=== PATIENT | male | born 1960 | race Caucasian/White ===

== ENCOUNTER 2020-10-12 13:03 | Outpatient (REF) | payer OTHER, SELFPAY ==
[2020-10-12 14:02] LABS: MANUAL DIFF FLAG NO
[2020-10-12 14:08] LABS: Basophils Percent Auto 0.6 % (0-2); Eosinophils Absolute Auto 0.4 X10*3/uL (0.0-0.4); Eosinophils Percent Auto 5.6 % (0-4); Hematocrit 40.7 % (42-52); Hemoglobin 13.8 g/dl (14.0-18.0); Imm Gran Abs Auto 0.01 X10*3/uL (0.00-0.03); Imm Gran Pct Auto 0.2 % (0.0-0.4); Lymphocytes Absolute Auto 1.8 X10*3/uL (1.2-4.9); Lymphocytes Percent Auto 28.3 % (20-40); Mean Corpuscular HGB Conc 33.9 g/dl (31.0-36.0); Mean Corpuscular Hemoglobin 28.2 pg (27.0-33.0); Mean Corpuscular Volume 83.1 fL (80-98); Mean Platelet Volume 8.9 fL (9.4-12.4); Monocytes Absolute Auto 0.5 X10*3/uL (0.1-1.2); Neutrophils Absolute Auto 3.7 X10*3/uL (2.0-8.3); Neutrophils Percent Auto 57.3 % (45-73); Platelet Count 243 X10*3/uL (160-400); Red Cell Distribution Width 13.2 % (11.0-16.0); White Blood Count 6.5 X10*3/uL (4.8-10.8)
[2020-10-12 14:52] LABS: Alanine Aminotransferase 42 U/L (0-40); Albumin Level 4.4 g/dL (3.5-5.0); Alkaline Phosphatase 59 U/L (39-117); Anion Gap 11 (12-20); Aspartate Amino Transferase 27 U/L (5-37); Bilirubin Total 0.6 mg/dL (0.0-1.0); Blood Urea Nitrogen 18 mg/dL (9-16); Carbon Dioxide 25 mmol/L (22-29); Chloride 109 mmol/L (96-108); Cholesterol 174 mg/dL; Estimated Glomerular Filt Rate > 60; Glucose Fasting 92 mg/dL (60-99); HDL Cholesterol 35 mg/dL; LDL Cholesterol Calculated 108 mg/dl; Potassium 4.1 mmol/L (3.3-5.1); Sodium 141 mmol/L (135-145); Total Protein 7.1 g/dL (6.5-8.0); Triglycerides 158 mg/dL
[2020-10-12 14:53] LABS: Prostate Specific Antigen 0.66 ng/mL (<0.05-4.0); Thyroid Stimulating Hormone 2.31 uIU/mL (0.32-4.0); Vitamin D 25-OH Total 22.6 ng/mL (>30)
== END 2020-10-12 13:04 | disposition home or self-care (01) ==
LOC: HO.HMGCLDS 13:03
PROVIDERS: PCP Internal Medicine; Visit Provider Internal Medicine
DX: Z12.5 Encounter for screening for malignant neoplasm of prostate (principal); I10 Essential (primary) hypertension; E78.00 Pure hypercholesterolemia, unspecified; F32.9 Major depressive disorder, single episode, unspecified; E55.9 Vitamin D deficiency, unspecified; M25.561 Pain in right knee
CPT/HCPCS: 36415; 80053; 80061; 82306; 84153; 84443; 85025

== ENCOUNTER → 2021-06-22 10:33 | Outpatient (BNVA) | payer OTHER, SELFPAY | PROVIDERS: PCP Internal Medicine; Visit Provider Surgery ==

== ENCOUNTER 2021-07-20 12:52 | Outpatient (REF) | payer OTHER, SELFPAY ==
[2021-07-20 12:57] VITALS: BMI 33.4
[2021-07-20 12:58] VITALS: BP 137/98; PULSE 81; RESP 16; TEMP 37.4; O2SAT 97
[2021-07-20 13:33] VITALS: BP 111/67; PULSE 62; RESP 16; O2SAT 97
--- NOTE | 2021-07-21 10:57 | P.OP_ITS ---
Operative Note Operative Note Date of Service: 07/20/21 Narrative: Preoperative diagnosis: Epidermal inclusion cyst right upper arm Postoperative diagnosis: Same Procedure: Excision of epidermal inclusion cyst right upper arm Surgeon: Cameron Alexandra MD Double Bottom Driver: No physician Anesthesia: Local Indications for procedure: 61-year-old male patient with a previous infected epidermal inclusion cyst of the right upper arm presenting today for excision Operative findings: 2.5 cm epidermal inclusion cyst right upper arm Specimen: Epidermal inclusion cyst right upper arm Estimated blood loss: 5 mL Complications: None Procedure details: Patient was brought to the minor surgery suite and placed in a left lateral decubitus position. The site of surgery in the right upper arm was identified by the patient and informed consent confirmed. The skin was prepped with Betadine and draped in a sterile fashion. Local anesthesia consisting of 1% lidocaine with epinephrine was then infiltrated around the lesion. An elliptical incision was then created oriented longitudinally around the skin cyst. This was carried out through subcutaneous tissue and around the cyst wall. The lesion was completely excised and sent to pathology for further examination. After assuring adequate hemostasis with 3-0 Polysorb sutures, the dermis was reapproximated using interrupted 3-0 Polysorb sutures. Skin was then closed using interrupted 4-0 nylon sutures. Sterile dressings consisting of 3 x 3 gauze and Tegaderm were then applied. The patient tolerated the procedure well. He was discharged to home in stable condition.
== END 2021-07-20 12:53 | disposition home or self-care (01) ==
LOC: HO.MS 12:52
PROVIDERS: PCP Internal Medicine; Visit Provider Surgery
PROC: (CPT 11403; principal; 2021-07-20 13:00)
DX: L72.0 Epidermal cyst (principal)
CPT/HCPCS: 11403; 88304

== ENCOUNTER → 2021-07-27 10:53 | Outpatient (BNVA) | payer OTHER, SELFPAY | PROVIDERS: PCP Internal Medicine; Visit Provider Surgery | DX: Z13.89 Encounter for screening for other disorder (principal) ==

== ENCOUNTER 2022-07-13 12:17 | Outpatient (REF) | payer OTHER, SELFPAY ==
--- NOTE | ~2022-07-13 | XR_ITS ---
EXAMINATION: XR CHEST CLINICAL INFORMATION: Hypertension. COMPARISON: None TECHNIQUE: 2 views of the chest were obtained. FINDINGS: No significant abnormality is noted involving the heart, lungs, mediastinum, bony thorax or soft tissues. XR/XR chest 2V IMPRESSION: No acute cardiopulmonary process.
[2022-07-13 14:03] LABS: MANUAL DIFF FLAG NO
[2022-07-13 14:14] LABS: Appearance Urine Clear; Color Urine Yellow; Glucose Urine UA Negative (Negative); Leukocyte Esterase Urine Negative (Negative); Nitrite Urine Negative (Negative); PH 5.5 (5.0-9.0); Specific Gravity - Urine >= 1.030 (1.005-1.025); UMIC TRIGGER UA YES; Urine Blood Trace (Negative); Urine Ketones Negative (Negative); Urine Protein Negative (Neg-Trace)
[2022-07-13 14:20] LABS: Bacteria Urine None Seen (None Seen); Hyaline Casts Urine 0-2 /LPF (0-2); Squamous Epithelial Cell Urine 0-2 /HPF (0-2); WBC Urine 0-5 /HPF (0-5)
[2022-07-13 14:41] LABS: Basophils Percent Auto 0.6 % (0-2); Eosinophils Absolute Auto 0.3 X10*3/uL (0.0-0.4); Eosinophils Percent Auto 4.3 % (0-4); Hematocrit 42.9 % (42.0-52.0); Hemoglobin 14.4 g/dl (14.0-18.0); Imm Gran Abs Auto 0.01 X10*3/uL (0.00-0.03); Imm Gran Pct Auto 0.2 % (0.0-0.4); Lymphocytes Percent Auto 31.3 % (20-40); Mean Corpuscular HGB Conc 33.6 g/dl (31.0-36.0); Mean Corpuscular Hemoglobin 27.5 pg (27.0-33.0); Mean Corpuscular Volume 81.9 fL (80.0-98.0); Monocytes Absolute Auto 0.4 X10*3/uL (0.1-1.2); Monocytes Percent Auto 6.8 % (2-11); Neutrophils Absolute Auto 3.6 x10*3/uL (2.0-8.3); Neutrophils Percent Auto 56.8 % (45-73); Platelet Count 243 X10*3/uL (160-400); Red Blood Count 5.24 X10*6/uL (4.60-5.80); Red Cell Distribution Width 13.3 % (11.0-16.0); White Blood Count 6.3 X10*3/uL (4.8-10.8)
[2022-07-13 15:04] LABS: Alanine Aminotransferase 24 U/L (0-40); Albumin Level 4.1 g/dL (3.5-5.0); Alkaline Phosphatase 58 U/L (39-117); Anion Gap 11 (12-20); Aspartate Amino Transferase 18 U/L (5-37); Bilirubin Total 0.5 mg/dL (0.0-1.0); Blood Urea Nitrogen 22 mg/dL (9-16); C Reactive Protein 0.18 mg/dL (< or = 0.50); Carbon Dioxide 26 mmol/L (22-29); Chloride 109 mmol/L (96-108); Cholesterol 177 mg/dL; Estimated Glomerular Filt Rate > 60; Glucose Fasting 84 mg/dL (60-99); HDL Cholesterol 33 mg/dL; LDL Cholesterol Calculated 118 mg/dl; Potassium 4.5 mmol/L (3.3-5.1); Sodium 141 mmol/L (135-145); Total Protein 6.8 g/dL (6.5-8.0); Triglycerides 130 mg/dL
[2022-07-13 15:22] LABS: PSA,Total (Free>4and<10) 0.76 ng/mL (0.00-4.00); Thyroid Stimulating Hormone 2.56 uIU/mL (0.32-4.0); Vitamin D 25-OH Total 17.2 ng/mL (>30)
[2022-07-13 15:44] LABS: Erythrocyte Sedimentation Rate 2 MM/HR (0-15)
== END 2022-07-13 12:18 | disposition home or self-care (01) ==
LOC: HO.HMGCX 12:17
PROVIDERS: Visit Provider Internal Medicine
DX: Z00.00 Encounter for general adult medical examination without abnormal findings (principal); Z12.5 Encounter for screening for malignant neoplasm of prostate; I10 Essential (primary) hypertension; F32.9 Major depressive disorder, single episode, unspecified; E78.00 Pure hypercholesterolemia, unspecified; E55.9 Vitamin D deficiency, unspecified; M25.661 Stiffness of right knee, not elsewhere classified
CPT/HCPCS: 36415; 71046; 80053; 80061; 81001; 82306; 84153; 84443; 85025; 85652; 86140

== ENCOUNTER 2022-10-02 12:31 | Outpatient (REF) | payer OTHER, SELFPAY ==
[2022-10-02 14:09] LABS: Urine Cytology See Pathology rpt
[2022-10-02 14:20] LABS: Appearance Urine Clear; Color Urine Yellow; Glucose Urine UA Negative (Negative); Leukocyte Esterase Urine Negative (Negative); Nitrite Urine Negative (Negative); PH 5.5 (5.0-9.0); Specific Gravity - Urine 1.025 (1.005-1.025); Urine Blood Negative (Negative); Urine Ketones Negative (Negative); Urine Protein Negative (Neg-Trace)
[2022-10-02 14:26] LABS: Bacteria Urine None Seen (None Seen); Hyaline Casts Urine 0-2 /LPF (0-2); RBC Urine 0-2 /HPF (0-2); Squamous Epithelial Cell Urine 0-2 /HPF (0-2); WBC Urine 0-5 /HPF (0-5)
[2022-10-02 14:37] LABS: Vitamin D 25-OH Total 31.8 ng/mL (>30)
== END 2022-10-02 12:32 | disposition home or self-care (01) ==
LOC: HO.HMGCLDS 12:31
PROVIDERS: PCP Internal Medicine; Visit Provider Internal Medicine
DX: R31.29 Other microscopic hematuria (principal); E55.9 Vitamin D deficiency, unspecified
CPT/HCPCS: 36415; 81001; 82306; 88112

== ENCOUNTER 2024-02-15 10:03 | Outpatient (REF) | payer OTHER, SELFPAY ==
[2024-02-15 10:12] LABS: MANUAL DIFF FLAG NO
[2024-02-15 10:49] LABS: Basophils Absolute Auto 0.1 X10*3/uL (0.0-0.2); Basophils Percent Auto 0.8 % (0-2); Eosinophils Absolute Auto 0.3 X10*3/uL (0.0-0.4); Eosinophils Percent Auto 5.4 % (0-4); Hematocrit 43.8 % (42.0-52.0); Hemoglobin 14.7 g/dl (14.0-18.0); Imm Gran Abs Auto 0.02 X10*3/uL (0.00-0.03); Imm Gran Pct Auto 0.3 % (0.0-0.4); Lymphocytes Absolute Auto 1.8 X10*3/uL (1.2-4.9); Mean Corpuscular HGB Conc 33.6 g/dl (31.0-36.0); Mean Corpuscular Hemoglobin 28.3 pg (27.0-33.0); Mean Corpuscular Volume 84.4 fL (80.0-98.0); Mean Platelet Volume 8.5 fL (9.4-12.4); Monocytes Absolute Auto 0.4 X10*3/uL (0.1-1.2); Monocytes Percent Auto 6.5 % (2-11); Neutrophils Absolute Auto 3.7 x10*3/uL (2.0-8.3); Platelet Count 229 X10*3/uL (160-400); Red Blood Count 5.19 X10*6/uL (4.60-5.80); Red Cell Distribution Width 13.5 % (11.0-16.0); White Blood Count 6.3 X10*3/uL (4.8-10.8)
[2024-02-15 11:07] LABS: Appearance Urine Clear; Color Urine Yellow; Glucose Urine UA Negative (Negative); Leukocyte Esterase Urine Negative (Negative); Nitrite Urine Negative (Negative); Specific Gravity - Urine >= 1.030 (1.005-1.025); Urine Blood Negative (Negative); Urine Ketones Negative (Negative); Urine Protein Negative (Neg-Trace)
[2024-02-15 11:53] LABS: Alanine Aminotransferase 25 U/L (0-40); Albumin Level 4.3 g/dL (3.5-5.0); Alkaline Phosphatase 59 U/L (39-117); Anion Gap 8 (12-20); Aspartate Amino Transferase 19 U/L (5-37); Bilirubin Total 0.5 mg/dL (0.0-1.0); Blood Urea Nitrogen 14 mg/dL (9-16); Calcium 9.2 mg/dL (8.4-10.2); Carbon Dioxide 28 mmol/L (22-29); Chloride 109 mmol/L (96-108); Cholesterol 180 mg/dL (<200); Estimated Glomerular Filt Rate > 60; Glucose Fasting 105 mg/dL (60-99); HDL Cholesterol 38 mg/dL (>40); LDL Cholesterol Calculated 118 mg/dL (<100); Potassium 4.3 mmol/L (3.3-5.1); Sodium 141 mmol/L (135-145); Total Protein 7.2 g/dL (6.5-8.0); Triglycerides 122 mg/dL (<150)
[2024-02-15 12:03] LABS: Prostate Specific Antigen 1.03 ng/mL (<0.05-4.0)
[2024-02-15 12:12] LABS: Thyroid Stimulating Hormone 2.31 uIU/mL (0.32-4.0); Vitamin D 25-OH Total 43.2 ng/mL (>30)
== END 2024-02-15 10:04 | disposition home or self-care (01) ==
LOC: HO.LAB 10:03
PROVIDERS: PCP Internal Medicine; Visit Provider Internal Medicine
DX: Z00.00 Encounter for general adult medical examination without abnormal findings (principal); I10 Essential (primary) hypertension; F32.9 Major depressive disorder, single episode, unspecified; E55.9 Vitamin D deficiency, unspecified; M25.661 Stiffness of right knee, not elsewhere classified
CPT/HCPCS: 36415; 80053; 80061; 81003; 82306; 84153; 84443; 85025

== ENCOUNTER 2024-08-17 12:22 | Day surgery (SDC) | payer OTHER, SELFPAY ==
--- OUTSIDE RECORDS SUMMARY | 2024-05-19 19:20 | XMS_ITS ---
Author Organization [facility] Address [address] [place] [address] Care Team Providers Care Rn Surgery Name Role Phone Eliot Yost DO Primary Care Provider Unavail able Eliot Abreu Unavailable [phone] REASON FOR VISIT R/S Procedure Encounters Encounter Location Date Provider Diagnosis [facility] [address] [place] [address] 05/15/2024 Eliot Abreu PLAN OF TREATMENT Next Appt Details Provider Name:Eliot Abreu , 08/17/2024 01:40:00 PM, [address] [place] [address] , [place], [place], [phone],
--- OUTSIDE RECORDS SUMMARY | 2024-05-19 19:21 | XMS_ITS | Patient Health Record ---
Author Organization [facility] Address [address] [place] [address] Care Team Providers Care Draw Hand Name Role Phone Eliot Horowitz DO Primary Care Provider Unavail able Eliot Abreu Unavailable [phone] ALLERGIES Allergen (clinical drug ingredient) Drug/Non Drug Allergy documented on EMR Reaction Allergy Type Onset Date Status amoxicillin Amoxicillin rash Drug Allergy Act crista REASON FOR REFERRAL Referring Provider First Name Eliot Referring Provider Last Name Priyank Referring Provider Speciality Internal M edicine Referred Organization [facility] Referred Provider Eliot Abreu Referred Address [address] [facility],[place], [place],[address], Referred Provider Specialty Gastroentero logy General Notes Alisa Mcguire 024 11:26:23 AM EDT > Spoke with Olivia at Dr. Horowitz's office and requested a [facility] referral. She will see if this is needed and call me back. Pt has an appt with Dr. Abreu on 01-14-2024 for a screening colon, Alisa Mcguire 01/14/2024 11:49:52 AM EDT > no referral required for [facility] per dr horowitz's office Referral Priority Routine MEDICATIONS Medication SIG (Take, Route, Frequency, Duration) Notes Start Date End Date Status Lisinopril 10 MG TAKE 1 TABLET BY NADIA TH EVERY DAY FOR 90 DAYS Oral for 90 Active Escitalopram Oxalate 10 MG TAKE 1 TABLET BY MOUTH EVERY DAY FOR 90 DAYS Oral for 90 Active Aleve 220 MG 1 tablet with food o r milk as needed Orally every 12 hrs Active SOCIAL HISTORY Tobacco Use: Social History Observation Description Date Details (start date - stop date) Never Smoker NA - NA Sex Assigned At : Social History Observation Description Sex Assigned At Unknown Tobacco Use/Smoking Question Answer Notes Patient is a nonsmoker Alcohol Screen Question Answer Notes Did you have a drink containing alcohol in the p ast year? No Points 0 Interpretation Negative PROBLEMS Problem Type ICD Code Onset Dates Problem Status W/U Status Risk SNOMED Code Notes Problem Colon cancer screening (Z12.11) Active confirmed Colon cancer screening (017400175) Problem Encounter for other preprocedural examination (Z01.818) Active confirmed Pre-procedure evaluation check (028202181) VITAL SIGNS Blood pressure diastolic 00 mm Hg 01/14/2024 Height 5 ft 9 in in 01/14/2024 Blood pressure systolic 00 mm Hg 01/14/2024 Weight 209 lbs 01/14/2024 BMI 30.86 kg/m2 01/14/2024 Encounters Encounter Location Date Provider Diagnosis [facility] Outpatient [address] [place] [phone] 05/01/2024 Eliot Abreu [facility] [address] [place] [phone] 01/14/2024 Eliot Abreu Colon cancer screeni ng Z12.11 and Encounter for other preprocedural examination Z01.818 [facility] [address] [place] [phone] 04/02/2024 Eliot Abreu [facility] [address] [place] [phone] 05/15/2024 Eliot Abreu ASSESSMENTS Encounter Date Diagnosis Assessment Notes Treatment Notes Treatment Clinical Notes 01/14/2024 Colon cancer screening (ICD-10 - Z12.11) 01/14/2024 Encounter for other preprocedural examination (ICD-10 - Z01.818) PLAN OF TREATMENT Future Test Test Name Order Date COLONOSCOPY 01/14/2024 Next Appt Details Provider Name:Eliot Abreu , 08/17/2024 01:40:00 PM, [address] [place] [address] , [place], [place], [phone], Insurance Providers Payer Name Payer Address Payer Phone Subscriber Number Group Number Insured Name Patient Relationship to Insured Coverage Start Date Coverage End Date [address] [phone] [id number] NESSA GOMES Self - patient is the insured MEDICAL (GENERAL) HISTORY Medical History History ICD Code Hypertension Negative colonoscopy with Dr. Porras at ag e 52 Anxiety Denies CA,DM,CVA,Lung disease,renal dise ase Surgical History Surgery Date(Month/Year) Inguinal hernia repair 2012
--- OUTSIDE RECORDS SUMMARY | 2024-05-19 19:21 | XMS_ITS ---
Author Organization [facility] Address [address] [place], [place] [phone] Care Team Providers Care Physician Assistant Primary Care Name Role Phone Eliot Yost Primary Care Provider REASON FOR VISIT 6 month f/u Encounters Encounter Location Date Provider Diagnosis Eliot Yost DO, FACP [address] [place] [phone] 03/17/2024 Eliot Yost PLAN OF TREATMENT No Information
--- OUTSIDE RECORDS SUMMARY | 2024-05-19 19:21 | XMS_ITS ---
Author Organization [facility] Address [address] [place] [address] Care Team Providers Care Microgrinder Operator Name Role Phone Eliot Yost DO Primary Care Provider Unavail able Eliot Abreu Unavailable [phone] REASON FOR VISIT screening Encounters Encounter Location Date Provider Diagnosis [facility] Outpatient [address] [place] [phone] 05/01/2024 Eliot Abreu PLAN OF TREATMENT Next Appt Details Provider Name:Eliot Abreu , 08/17/2024 01:40:00 PM, [address] [place] [address], [phone],
--- OUTSIDE RECORDS SUMMARY | 2024-05-19 19:21 | XMS_ITS ---
Author Organization [facility] Address [address] [place] [address] Care Team Providers Care Military Science Instructor Name Role Phone Eliot Yost DO Primary Care Provider Unavail able Eliot Abreu Unavailable [phone] REASON FOR VISIT RESCHEDULE PROCEDURE Encounters Encounter Location Date Provider Diagnosis [facility] [address] [place] [address] 04/02/2024 Eliot Abreu PLAN OF TREATMENT Next Appt Details Provider Name:Eliot Abreu , 08/17/2024 01:40:00 PM, [address] [place] [address] , [place], [phone],
--- OUTSIDE RECORDS SUMMARY | 2024-05-19 19:22 | XMS_ITS | Patient Health Record ---
Author Organization Eliot Yost DO, FAC Address [address] [place] [phone] Care Team Providers Care Cotton Picker Name Role Phone Eliot Yost Primary Care Provider ALLERGIES Allergen (clinical drug ingredient) Drug/Non Drug Allergy documented on EMR Reaction Allergy Type Onset Date Status amoxicillin Amoxicillin rash Drug Allergy Act crista RESULTS Component Value Reference Range Notes Complete Blood Count Auto Di ff Reviewed date:02/15/2024 12:31:20 PM Interpretation:Normal Performing Lab:[facility], [address] [place] [phone] Notes/Report: White Blood Count 6.3 4.8-10.8 X10*3/uL Red Blood Count 5.19 4.60-5.80 X10*6/uL Hemoglobin 14.7 14.0-18.0 g/dl Hematocrit 43.8 42.0-52.0 % Mean Corpuscular Volume 84.4 80.0-98.0 fL Mean Corpuscular Hemoglobin 28.3 27.0-33.0 pg Mean Corpuscular HGB Conc 33.6 31.0-36.0 g/dl Red Cell Distribution Width 13.5 11.0-16.0 % Platelet Count 229 160-400 X10*3/uL Mean Platelet Volume 8.5 9.4-12.4 fL Neutrophils Percent Auto 59.0 45-73 % Imm Gran Pct Auto 0.3 0.0-0.4 % Lymphocytes Percent Auto 28.0 20-40 % Monocytes Percent Auto 6.5 2-11 % Eosinophils Percent Auto 5.4 0-4 % Basophils Percent Auto 0.8 0-2 % NRBC Pct Auto 0.0 0.0-0.2 /100WBC Neutrophils Absolute Auto 3.7 2.0-8.3 x10*3/u L Imm Gran Abs Auto 0.02 0.00-0.03 X10*3/uL Lymphocytes Absolute Auto 1.8 1.2-4.9 X10*3/u L Monocytes Absolute Auto 0.4 0.1-1.2 X10*3/uL Eosinophils Absolute Auto 0.3 0.0-0.4 X10*3/u L Basophils Absolute Auto 0.1 0.0-0.2 X10*3/uL NRBC Abs Auto 0.000 0.0-0.012 X10*3/uL Urinalysis Reviewed date:02/15/2024 12:31:20 PM Interpretation:Negative Performing Lab:[address] [phone] Notes/Report: Color Urine Yellow Appearance Urine Clear PH 7.0 5.0-9.0 Glucose Urine UA Negative Negative mg/dL Urine Blood Negative Negative Specific Tamms - Urine >= 1.030 1.005-1.025 Urine Protein Negative Neg-Trace mg/dL Urine Ketones Negative Negative mg/dL Nitrite Urine Negative Negative Leukocyte Esterase Urine Negative Negative Comprehensive Manson. Panel Fa st Reviewed date:02/15/2024 12:31:20 PM Interpretation:Abnormal Performing Lab:[address] [phone] Notes/Report: Sodium 141 135-145 mmol/L Potassium 4.3 3.3-5.1 mmol/L Chloride 109 96-108 mmol/L Carbon Dioxide 28 22-29 mmol/L Anion Gap 8 12-20 Blood Urea Nitrogen 14 9-16 mg/dL Creatinine 1.00 0.5-1.4 mg/dL Estimated Glomerular Filt Rate > 60 NOTE: For -Romanian individuals, multiply the result by 1.210. Chronic Kidney Disease: Estimated GFR < 60 mL/min/1.73m2 Severe Kidney Disease: Estimated GFR < 15 mL/min/1.73m2 Glucose Fasting 105 60-99 mg/dL A fasting glucose from 100-125 mg/dl is considered impaired (pre-diabetes). Calcium 9.2 8.4-10.2 mg/dL Bilirubin Total 0.5 0.0-1.0 mg/dL Aspartate Amino Transferase 19 5-37 U/L Alanine Aminotransferase 25 0-40 U/L Total Protein 7.2 6.5-8.0 g/dL Albumin Level 4.3 3.5-5.0 g/dL Alkaline Phosphatase 59 39-117 U/L Lipid Panel Reviewed date:02/15/2024 12:31:20 PM Interpretation:Abnormal Performing Lab:[address] [phone] Notes/Report: Triglycerides 122 <150 mg/dL Desirable Triglyceride: less than 150 mg/dL Borderline High Triglyceride 150-199 mg/dL High Triglyceride: 200-499 mg/dL Very High Triglyceride: greater than or equal to 5OO mg/dL Cholesterol 180 <200 mg/dL Desirable Cholesterol: less than 200 mg/dL Borderline High Cholesterol: 200-239 mg/dL High Cholesterol: greater than 239 mg/dL LDL Cholesterol Calculated 118 <100 mg/dL Desirable LDL: less than 100 mg/dL Near Optimal/Above Optimal LDL: 110-129 mg/dL Borderline High LDL: 130-159 mg/dL High LDL: 160-189 mg/dL Very High LDL: greater than or equal to 190 mg/dL HDL Cholesterol 38 >40 mg/dL Desirable HDL: greater than 40 mg/dL Note: This HDL assay may give artificially low results in patients with liver disease. Prostate Specific Antigen Reviewed date:02/15/2024 12:31:20 PM Interpretation:Normal Performing Lab:[facility], [address] [place] [phone] Notes/Report: Prostate Specific Antigen 1.03 <0.05-4.0 ng/mL PSA methodology: [facility] i Chemiluminescent Microparticle Immunoassay (CMIA) Vitamin D 25-OH Total Reviewed date:02/15/2024 12:31:20 PM Interpretation:Normal Performing Lab:[address] [phone] Notes/Report: Vitamin D 25-OH Total 43.2 >30 ng/mL Health Based Reference Values* < 20 ng/mL Deficient 20-30 ng/mL Insufficient > 30 ng/mL Sufficient *Laura DIEHL. N Engl J Med. 2007;357:266-280 Care must be taken in interpreting Vitamin D results from different laboratories and methodologies. Published data demonstrated that results from patients undergoing hemodialysis may show a negative bias when tested with various automated 25-OH vitamin D assays when compared to LC-MS/MS. When testing samples from patients whose predominant form of Vitamin D is Vitamin D2, such as patients receiving Vitamin D2 supplementation, results that are subtherapeutic should be confirmed with another method such as LC-MS/MS. Thyroid Stimulating Hormone Reviewed date:02/15/2024 12:31:20 PM Interpretation:Normal Performing Lab:[facility], [address] [place] [phone] Notes/Report: Thyroid Stimulating Hormone 2.31 0.32-4.0 uIU/ mL TSH 3rd Generation ([facility]) REASON FOR REFERRAL Reason F/U Colonoscopy Diagnosis 1 Encounter for genera l adult medical examination without abnormal findings (Z00.00) Referral Organization Eliot Banks, FACP Referring Provider First Name Eliot Referring Provider Last Name Priyank Referring Provider Speciality Internal M edicine Referred Provider Eliot Abreu Referred Provider Specialty Gastroentero logy General Notes Farhana Pfeiffer 04:30:29 PM EDT >Referral faxed prior to scheduling, Farhana Pfeiffer 09/11/2023 11:04:02 AM EDT > Dr. Abreu's office will contact patient to schedule appointment. Referral Priority Routine Referral Appointment Date 01/14/2024 MEDICATIONS Medication SIG (Take, Route, Frequency, Duration) Notes Start Date End Date Status Ergocalciferol 1.25 MG (00159 UT) 1 capsule Orally Twice a week Active Centrum Ultra Mens 1 tablet Orally Once a day Active Escitalopram Oxalate 10 MG 1 tablet Oral ly Once a day Active Vitamin D 50 MCG (2000 UT) 1 capsule Ora lly Once a day Active Glucosamine Chondr 1500 Complx - 1 capsule Orally Once a day 04/21/2019 Active Lisinopril 10 MG 1 tablet Orally Once a day Active Lisinopril 10 MG 1 tablet Orally Once a day for 30 day(s) 03/11/2024 Active IMMUNIZATIONS Vaccine Route Administration Date Status Comme nts Td (adult) Unknown 08/24/2002 Administered TDaP Unknown 11/04/2011 Administered Influenza Quad IM Intramuscular 05/15/2017 Administered Influenza Quad IM Intramuscular 02/03/2018 Administered COVID-19 Pfizer BioNTech Unknown 08/16/2020 Administere d COVID-19 Pfizer BioNTech Unknown 09/07/2020 Administere d Influenza Quad Unknown 02/20/2021 Administered Influenza Quad Unknown 02/02/2020 Administered Influenza Unknown 04/25/2015 Refused SOCIAL HISTORY Tobacco Use: Social History Observation Description Date Details (start date - stop date) Former Smoker NA - NA Sex Assigned At : Social History Observation Description Sex Assigned At Unknown Tobacco Use/Smoking Question Answer Notes Patient is a former smoker How long has it been since y ou last smoked? > 10 years Additional Findings: Tobacco Non-User Fo rmer smoker, currently using no form of tobacco Alcohol Screen Question Answer Notes Did you have a drink containing alcohol in the p ast year? No Points 0 Interpretation Negative PROBLEMS Problem Type ICD Code Onset Dates Problem Status W/U Status Risk SNOMED Code Notes Problem Vitamin D deficiency (E55.9) Active confirmed Vitamin D deficiency (37211624) Problem Essential hypertensi on (I10) Active confirmed 58844607 Problem Reactive depression (F32.9) Active confirmed 18675049 Problem Hypercholesterolemia (E78.00) Active confirmed 25337935 VITAL SIGNS Blood pressure diastolic 74 mm Hg 03/11/2024 Height 68.25 in 03/11/2024 Blood pressure systolic 124 mm Hg 03/11/2024 Weight 213 lbs 03/11/2024 BMI 32.15 kg/m2 03/11/2024 Encounters Encounter Location Date Provider Diagnosis Eliot Yost DO, [facility] [address] [place], [place] [phone] 06/26/2023 Eliot Yost DO, [facility] [address] [place], [place] [phone] 08/13/2023 Eliot Yost DO, [facility] [address] [place], [place] [phone] 09/10/2023 Eliot Yost Encounter for genera l adult medical examination without abnormal findings Z00.00 ; Essential hypertension I10 ; Reactive depression F32.9 ; Vitamin D deficiency E55.9 and Stiffness of right knee M25.661 Eliot Yost DO, [facility] [address] [place], [place] [phone] 03/17/2024 Eliot Yost DO, [facility] [address] [place], [place] [phone] 03/11/2024 Eliot Yost Essential hypertension I10 ; Reactive depression F32.9 ; Vitamin D deficiency E55.9 and Stiffness of right knee M25.661 ASSESSMENTS Encounter Date Diagnosis Assessment Notes Treatment Notes Treatment Clinical Notes 09/10/2023 Encounter for general adult medical examination without abnormal findings (ICD-10 - Z00.00) 09/10/2023 Essential hypertension (ICD-10 - I10) 03/11/2024 Essential hypertension (ICD-10 - I10) 03/11/2024 Reactive depression (ICD-10 - F32.9) 09/10/2023 Reactive depression (ICD-10 - F32.9) 03/11/2024 Vitamin D deficiency (ICD-10 - E55.9) 09/10/2023 Vitamin D deficiency (ICD-10 - E55.9) 03/11/2024 Stiffness of right knee (ICD-10 - M25.661) 09/10/2023 Stiffness of right knee (ICD-10 - M25.661) PLAN OF TREATMENT No Information Insurance Providers Payer Name Payer Address Payer Phone Subscriber Number Group Number Insured Name Patient Relationship to Insured Coverage Start Date Coverage End Date [facility] [address] [place] [phone] [id number] Joe Hartley Self - patient is the insured MEDICAL (GENERAL) HISTORY Medical History History ICD Code hypertension hypercholesterolemia anxiety depression irritable bowel syndrome gastroesophageal reflux disease (GERD) alcoholism, sober > 18 years Inguinal hernia Reactive depression F32.9 Vitamin D deficiency E55.9 Surgical History Surgery Date(Month/Year) cyst removal herniorraphy vasectomy
--- OUTSIDE RECORDS SUMMARY | 2024-05-19 19:22 | XMS_ITS ---
Author Organization [facility] Address [address] [facility] [place] [address] Care Team Providers Care Electric Plater Name Role Phone Eliot Yost MD Primary Care Provider Unavail able Ernestina Rae [phone] Encounters Encounter Location Date Provider [facility] [address] [place] [address] 01/08/2023 Ernestina Rae Plan Of Treatment No Information Progress Notes * Joe GOMES PDOB:1959 (64 yo M)Acc No.[id number]:01/08/2023 Progress Notes Patient:?Joe GOMES Provider:?Ernestina Rae DPM :1960???Age:62 Y???Sex:Male Garry e:01/08/2023 Address:[address] [facility] [phone] Pcp:Eliot Yost MD Subjective: * Chief Complaints: * ??? * Medical History:? Objective: * Vitals:? Assessment: Plan: * Treatment: * Images: * The named appointment provid er may or may not be the originator of this progress note, and it is not deemed complete until electronically signed by the appointment provider. Sign off status: Pending * Provider:?Ernestina Rae DPM Date:?2022 Generated for Lorenai damari/Nikko/eTransmitting on:?05/19/2024 07:21 PM EST
--- OUTSIDE RECORDS SUMMARY | 2024-05-19 19:22 | XMS_ITS ---
Author Organization Eliot Yost DO, FAC Address [address] [place], [place] [phone] Care Team Providers Care Embedded Nurse Name Role Phone Eliot Yost Primary Care Provider ALLERGIES Allergen (clinical drug ingredient) Drug/Non Drug Allergy documented on EMR Reaction Allergy Type Onset Date Status amoxicillin Amoxicillin rash Drug Allergy Act crista REASON FOR VISIT Follow up hypertension, hypercholesterolemia MEDICATIONS Medication SIG (Take, Route, Frequency, Duration) Notes Start Date End Date Status Ergocalciferol 1.25 MG (36896 UT) 1 capsule Orally Twice a week Active Centrum Ultra Mens 1 tablet Orally Once a day Active Glucosamine Chondr 1500 Complx - 1 capsule Orally Once a day 04/21/2019 Active Lisinopril 10 MG 1 tablet Orally Once a day Active Lisinopril 10 MG 1 tablet Orally Once a day for 30 day(s) 03/11/2024 Active Escitalopram Oxalate 10 MG 1 tablet Oral ly Once a day Active Vitamin D 50 MCG (2000 UT) 1 capsule Ora lly Once a day Active SOCIAL HISTORY Tobacco Use: Social History [...] ast year? No Points 0 Interpretation Negative VITAL SIGNS BMI 32.15 kg/m2 03/11/2024 Blood pressure systolic 124 mm Hg 03/11/20 24 Blood pressure diastolic 74 mm Hg 024 Height 68.25 in 03/11/2024 Weight 213 lbs 03/11/2024 Encounters Encounter Location Date Provider Diagnosis Eliot Yost DO, [address] [phone] 03/11/2024 Eliot Yost Essential hypertension I10 ; Reactive depression F32.9 ; Vitamin D deficiency E55.9 and Stiffness of right knee M25.661 ASSESSMENTS Encounter Date Diagnosis Assessment Notes Treatment Notes Treatment Clinical Notes 03/11/2024 Essential hypertension (ICD-10 - I10) 03/11/2024 Reactive depression (ICD-10 - F32.9) 03/11/2024 Vitamin D deficiency (ICD-10 - E55.9) 03/11/2024 Stiffness of right knee (ICD-10 - M25.661) PLAN OF TREATMENT Medication Medication Name Sig Start Date Stop Date Notes Ergocalciferol 1.25 MG (04076 UT) 1 caps ule Orally Twice a week Centrum Ultra Mens 1 tablet Orally Once a day Glucosamine Chondr 1500 Complx - 1 capsu le Orally Once a day 04/21/2019 Lisinopril 10 MG 1 tablet Orally Once a day for 30 day(s) 03/11/2024 Escitalopram Oxalate 10 MG 1 tablet Oral ly Once a day Vitamin D 50 MCG (1999 UT) 1 capsule Ora lly Once a day Next Appt Details Follow Up: 6 Months, Reason: H&P Progress Notes * Examination Category Sub-Category Detail Notes General Examination GENERAL APPEARANCE: in no ac hyun distress, well developed, well nourished HEAD: normocephalic, atrau matic HEART: no murmurs, regular rate and rhythm, S1, S2 normal LUNGS: clear to auscultatio n bilaterally ABDOMEN: normal, bowel sounds present, soft, nontender, nondistended SKIN: warm and dry EXTREMITIES: no edema PSYCH: alert, oriented, cog nitive function intact
--- OUTSIDE RECORDS SUMMARY | 2024-05-19 19:22 | XMS_ITS ---
Author Organization Eliot Yost DO, FACP Address [address] [place], [place] [id number] Care Team Providers Care Typists Supervisor Name Role Phone Eliot Yost Primary Care Provider ALLERGIES Allergen (clinical drug ingredient) Drug/Non Drug Allergy documented on EMR Reaction Allergy Type Onset Date Status amoxicillin Amoxicillin rash Drug Allergy Act crista REASON FOR REFERRAL Reason F/U Colonoscopy Diagnosis 1 Encounter for genera l adult medical examination without abnormal findings (Z00.00) Referral Organization Eliot Calero O, FACP Referring Provider First Name Eliot Referring Provider Last Name Priyank Referring Provider Speciality Internal M edicine Referred Provider Eliot Abreu Referred Provider Specialty Gastroentero logy General Notes Farhana Pfeiffer 04:30:29 PM EDT >Referral faxed prior to scheduling, Farhana Pfeiffer 09/11/2023 11:04:02 AM EDT > Dr. Abreu's office will contact patient to schedule appointment. Referral Priority Routine Referral Appointment Date 01/14/2024 REASON FOR VISIT physical, annual visit MEDICATIONS Medication SIG (Take, Route, Frequency, Duration) Notes Start Date End Date Status Glucosamine Chondr 1500 Complx - 1 capsule Orally Once a day 04/21/2019 Active Lisinopril 10 MG 1 tablet Orally Once a day Active Escitalopram Oxalate 10 MG 1 tablet Oral ly Once a day Active Ergocalciferol 1.25 MG (79595 UT) 1 capsule Orally Twice a week 07/17/2022 Active Centrum Ultra Mens 1 tablet Orally Once a day Active Vitamin D 50 MCG (1999 UT) 1 [...] Points 0 Interpretation Negative VITAL SIGNS BMI 32.30 kg/m2 09/10/2023 Blood pressure systolic 124 mm Hg 09/10/19 24 Blood pressure diastolic 62 mm Hg 024 Height 68.25 in 09/10/2023 Weight 214 lbs 09/10/2023 Encounters Encounter Location Date Provider Diagnosis Eliot Yost DO, [address] [phone] 09/10/2023 Eliot Yost Encounter for genera l adult medical examination without abnormal findings Z00.00 ; Essential hypertension I10 ; Reactive depression F32.9 ; Vitamin D deficiency E55.9 and Stiffness of right knee M25.661 ASSESSMENTS Encounter Date Diagnosis Assessment Notes Treatment Notes Treatment Clinical Notes 09/10/2023 Encounter for general adult medical examination without abnormal findings (ICD-10 - Z00.00) 09/10/2023 Essential hypertension (ICD-10 - I10) 09/10/2023 Reactive depression (ICD-10 - F32.9) 09/10/2023 Vitamin D deficiency (ICD-10 - E55.9) 09/10/2023 Stiffness of right knee (ICD-10 - M25.661) PLAN OF TREATMENT Medication Medication Name Sig Start Date Stop Date Notes Glucosamine Chondr 1500 Complx - 1 capsu le Orally Once a day 04/21/2019 Lisinopril 10 MG 1 tablet Orally Once a day Escitalopram Oxalate 10 MG 1 tablet Oral ly Once a day Ergocalciferol 1.25 MG (00388 UT) 1 caps ule Orally Twice a week 07/17/2022 Centrum Ultra Mens 1 tablet Orally Once a day Vitamin D 50 MCG (2000 UT) 1 capsule Ora lly Once a day Referrals Referral Date Details 01/14/2024 01/14/2024, F/U [facility], Eliot Abreu Next Appt Details Follow Up: 6 Months, Reason: follow up visit Progress Notes * Examination Category Sub-Category Detail Notes General Examination GENERAL APPEARANCE: in no ac tule river distress, well developed, well nourished HEAD: normocephalic, atrau matic EYES: pupils equal, round, reactive to light and accommodation NECK/THYROID: neck supple, thyroid normal, no cervical lymphadenopathy, no carotid bruit HEART: no murmurs, regular rate and rhythm, S1, S2 normal LUNGS: clear to auscultatio n bilaterally ABDOMEN: normal, bowel sounds present, soft, nontender, nondistended NEUROLOGIC: nonfocal, motor stre ngth normal upper and lower extremities, sensory exam intact SKIN: warm and dry EXTREMITIES: no edema MALE GENITOURINARY no hernia, no penile lesions or discharge, no testicular mass, testes descended bilaterally, hydrocele, left PSYCH: alert, oriented, cog nitive function intact History and Physical Notes * HPI (History of Present Illness) Category Sub-Category Detail Notes Depression Screening PHQ-9 Little inte rest or pleasure in doing things: Not at all Feeling down, depressed, or hopeless: No t at all Trouble falling or staying asleep, or sl eeping too much: Not at all Feeling tired or having little energy: N ot at all Poor appetite or overeating: Not at all Feeling bad about yourself o r that you are a failure, or have let yourself or your family down: Not at all Trouble concentrating on thi ngs, such as reading the newspaper or watching television: Not at all Moving or speaking so slowly that other people could have noticed; or the opposite, being so fidgety or restless that you have been moving around a lot more than usual: Not at all Thoughts that you would be b sarah off or of hurting yourself in some way: Not at all Total Score: 0 Interpretation and Intervention Depression Krystina martínez Findings: Negative Follow-Up for Depression: : Review of PH Q-9 found negative result; no follow-up needed Treatment Goals Continue current med ication Self-Managment Goals Exercise at least 3 xs per week Fall Risk Fall History Have you had two or more fal ls in the past year?: No Have you had any falls with injury in th e past year?: No Fall Risk Assessment:: No falls in the p ast year Communication Needs [facility] Communication Needs - [facility] He aring Impairment?: No Vision Impairment?: Yes wears glasses Cognitive Impairment?: No SDOH Questions SDOH Questions In the past year have you been worried about losing your housing?: No In the past year have you or any family members you live with been unable to get any of the following when it was really needed? Check all that apply:: None Consultation Request Notes Referral Date Referring Provider Referred Provider Not es 09/10/2023 Eliot Yost, Eliot F/Ashley Loya copy
--- OUTSIDE RECORDS SUMMARY | 2024-05-19 19:22 | XMS_ITS ---
Author Organization [facility] Address [address] [facility] [place] [address] Care Team Providers Care Ballroom Dance Instructor Name Role Phone Eliot Yost MD Primary Care Provider Unavail able Black, Ernestina Unavailable [phone] REASON FOR VISIT balance Encounters Encounter Location Date Provider Diagnosis [address] [place] [address] 01/01/2023 Ernestina Black Plan Of Treatment No Information Progress Notes * Joe GOMES PDOB:1959 (62 yo M)Acc No.[id number]:01/01/2023 Patient:?Naeem Joe Benton :1960???Age:62 Y???Sex:Male Address:[address] [place] [address] * true * Date:? Generated for Printi damari/Nikko/eTransmitting on:?05/19/2024 07:22 PM EST
--- OUTSIDE RECORDS SUMMARY | 2024-05-19 19:22 | XMS_ITS | Patient Health Record ---
Author Organization [facility] Address [address] [facility] [place] [address] Care Team Providers Care Diesel Powerplant Mechanic Helper Name Role Phone Eliot Yost MD Primary Care Provider Unavail able Black, Ernestina Unavailable [phone] Allergies Allergen (clinical drug ingredient) Drug/Non Drug Allergy documented on EMR Reaction Allergy Type Onset Date Status amoxicillin Amoxicillin rash Drug Allergy Act crista Reason For Referral No Information Medications Medication SIG (Take, Route, Frequency, Duration) Notes Start Date End Date Status Vitamin D Active Escitalopram Oxalate 10 MG as directed Orally Active Physical Therapy . .please use both iontophoresis and us for right heel pain . 2-3x/week for 3-4 weeks 01/20/2014 Not-Taki ng Aleve Not-Taking Nabumetone 750 MG 1 tablet Orally Twic e a day for 30 day(s) 12/03/2013 Not-Taking Fluoxetine 40 MG Not -Taking Lisinopril Active Naproxen Sodium Not- Taking Social History Tobacco Use: Social History Observation Description Date Details (start date - stop date) Former Smoker NA - NA Tobacco Use/Smoking Question Answer Notes Are you a: former smoker Additional Findings: Tobacco Non-User Current no n-smoker Alcohol Screen Question Answer Notes Did you have a drink containing alcohol in the p ast year? No Points 0 Interpretation Negative Tobacco use other than smoking: Question Answer Notes Are you an other tobacco user? No Problems Problem Type SNOMED Code ICD Code Onset Dates Problem Status W/U Status Risk Notes Problem Localized, primary osteoarthritis of the ankle and/or foot (469409096) Primary osteoarthriti s, right ankle and foot (M19.071) Active confirmed Problem Localized, primary osteoarthritis of the ankle and/or foot (120644978) Primary osteoarthriti s, left ankle and foot (M19.072) Active confirmed Problem Acquired hammer toe of right foot (5610542883077009) Other hammer toe(s) (acquired), right foot (M20.41) Active confirmed Problem Acquired hammer toe of left foot (5681555944380114) Other hammer toe(s) (acquired), left foot (M20.42) Active confirmed Problem 860107838 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
--- OUTSIDE RECORDS SUMMARY | 2024-05-19 19:22 | XMS_ITS ---
Author Organization [facility] Address [address] [facility] [place] [address] Care Team Providers Care Clinical Research Technician Name Role Phone Eliot Yost MD Primary Care Provider Unavail able Black, Ernestina Unavailable [phone] REASON FOR VISIT cx 01/08/23 appt Encounters Encounter Location Date Provider Diagnosis [address] [place] [address] 01/02/2023 Ernestina Black Plan Of Treatment No Information Progress Notes * Joe GOMES PDOB:1959 (62 yo M)Acc No.[id number]:01/02/2023 Patient:?Naeem oJe Benton :1960???Age:62 Y???Sex:Male Address:[address] [place] [address] * true * Date:? Generated for Printi ng/Fajyotig/eTransmitting on:?05/19/2024 07:21 PM EST
--- NOTE | 2024-05-22 10:10 | HO.ANESPROP2 ---
HPI - Anesthesia Eval Consult details Narrative: 64yo M for ?Colonoscopy PMFSH Active Problems Active Problems: All Active Problems Cellulitis of right arm (Acute) Epidermal inclusion cyst (Acute) Past Medical History Medical History (Updated 04/29/24 @ 11:42 by Esmer Hester RN) Anxiety HTN (hypertension) History of right inguinal hernia Family History Family History Other Adopted person Surgical History Surgical History (Updated 04/29/24 @ 11:42 by Esmer Hester RN) Hx of inguinal hernia repair H/O colonoscopy History of excision of epidermal inclusion cyst (07/20/21) Social History Social History Alcohol intake: never Patient Tobacco Use Status: Never used Tobacco Meds Allergies Allergy/AdvReac Type Severity Reaction Status Date / Time Amoxicillin Allergy Unknown rash Uncoded 07/27/21 10:58 Home Medications ?Medication ?Instructions ?Recorded ?Confirmed ?Last Taken ?Type escitalopram oxalate 10 mg tablet 10 mg PO DAILY 06/22/21 04/29/24 Unknown History lisinopril 10 mg tablet 10 mg PO DAILY 06/22/21 04/29/24 Unknown History naproxen sodium 220 mg tablet 220 mg PO BID PRN Pain 04/29/24 04/29/24 Unknown History (Jessica) Assessment and Plan Assessment Anesthesia Assessment: Chart Reviewed
--- NOTE | 2024-08-14 09:41 | HO.ANESPROP2 ---
HPI - Anesthesia Eval Consult details Narrative: 64yo M for Colonoscopy PMFSH Active Problems Active Problems: All Active Problems Cellulitis of right arm (Acute) Epidermal inclusion cyst (Acute) Past Medical History Medical History (Updated 04/29/24 @ 11:42 by Esmer Hester RN) Anxiety HTN (hypertension) History of right inguinal hernia Family History Family History Other Adopted person Surgical History Surgical History (Updated 04/29/24 @ 11:42 by Esmer Hester RN) Hx of inguinal hernia repair H/O colonoscopy History of excision of epidermal inclusion cyst (07/20/21) Social History Social History Alcohol intake: never Patient Tobacco Use Status: Never used Tobacco Meds Allergies Allergy/AdvReac Type Severity Reaction Status Date / Time Amoxicillin Allergy Unknown rash Uncoded 07/27/21 10:58 Home Medications ?Medication ?Instructions ?Recorded ?Confirmed ?Last Taken ?Type naproxen sodium 220 mg tablet 220 mg PO BID PRN Pain 04/29/24 04/29/24 Unknown History (Aleve) Assessment and Plan Assessment Anesthesia Assessment: Chart Reviewed
[2024-08-17 10:40] VITALS: BMI 30.9
[2024-08-17 12:41] VITALS: BP 144/74; PULSE 62; RESP 18; TEMP 36.1; O2SAT 98; BMI 31.0
[2024-08-17] MEDS: Lactated Ringers 1,000 ML 100 ML IVCONT (12:54)
--- NOTE | 2024-08-17 13:48 | HO.ANESPROP2 ---
[facility] Active Problems Active Problems: All Active Problems Cellulitis of right arm (Acute) Epidermal inclusion cyst (Acute) Past Medical History Medical History Anxiety HTN (hypertension) History of right inguinal hernia Functional capacity: independent ambulation Family History Family History Other Adopted person Family history of problems with anesthesia: No Surgical History Surgical History Hx of inguinal hernia repair H/O colonoscopy History of excision of epidermal inclusion cyst (07/20/21) History of Problems with Anesthesia: No Social History Social History Alcohol intake: never Patient Tobacco Use Status: Former Tobacco user Have you been hit, kicked, punched, or otherwise hurt by someone within the past year? If so, by whom?: No Are you DNR?: No Advance Directives: No Advance Directives Information Provided: Yes Meds Allergies Allergy/AdvReac Type Severity Reaction Status Date / Time Amoxicillin Allergy Unknown rash Uncoded 07/27/21 10:58 Active Medications: Current Medications Lactated Ringer's (Lr) 1,000 mls @ 100 mls/hr IVCONT .Q10H SHERMAN Last Admin: 08/17/24 12:54 Dose: 100 mls/hr Sodium Biphosphate/Sodium Phosphate (Sodium Phosphate,Storey-Dibasic 133 Ml Enema) 133 ml OH ONCE PRN PRN Reason: Poor Colonoscopy Prep Results Home Medications ?Medication ?Instructions ?Recorded ?Confirmed ?Last Taken ?Type naproxen sodium 220 mg tablet 220 mg PO BID PRN Pain 04/29/24 08/17/24 08/11/24 History (Aleve) Exam Height,Weight and Vital Signs: Height 5 ft 9 in Weight 95.2 kg Last Vital Signs Temp 97 F 08/17/24 12:41 Pulse 62 08/17/24 12:41 Resp 18 08/17/24 12:41 BP 144/74 H 08/17/24 12:41 Pulse Ox 98 08/17/24 12:41 O2 Del Method Room Air 08/17/24 12:41 Airway Mallampati Class: II TM Dist: >3cm Neck ROM: Full Heart: RRR Lungs: CTA Assessment and Plan Assessment Anesthesia Assessment: Anesthesia Plan Discussed Final Anesthetic Review Family History of Problems with Anesthesia: No History of Problems with Anesthesia: No NPO: Yes ASA Class: II Final Preanesthetic Review: Meds/Allgs Chart Reviewed, Consent Obtained/Reviewed and Anes Risks/Benef Reviewed Patient Risk: Low Anesthetic Plan Anesthetic Plan: MAC: Disposition: Standard PACU
[2024-08-17 14:58] VITALS: BP 91/52; PULSE 63; RESP 16; TEMP 36.2; O2SAT 94
--- NOTE | 2024-08-17 14:59 | P.BOP_ITS ---
Brief Operative Note Date of Service: 08/17/24 Pre-op diagnosis: Screening Post-op diagnosis: other (Diverticulosis) Procedure: Colonoscopy to the cecum and TI Surgeon: Eliot Abreu MD Anesthesia: MAC Was an Engineering Leader used for this Procedure?: No Estimated blood loss (mL): 0 Pathology: none sent Condition: stable Disposition: PACU
[2024-08-17 15:13] VITALS: BP 123/67; PULSE 75; RESP 16; TEMP 36.1; O2SAT 96
--- NOTE | 2024-08-18 01:02 | OP_ITS ---
DATE OF SERVICE: 08/17/2024 SURGEON: Eliot Abreu MD INDICATIONS: The patient presents for evaluation of colorectal cancer screening. Full consent has been obtained from him for this, including risks of bleeding and perforation. PREOPERATIVE DIAGNOSIS: Colorectal cancer screening. POSTOPERATIVE DIAGNOSIS: PROCEDURE PERFORMED: Colonoscopy to the cecum and terminal ileum. ESTIMATED BLOOD LOSS: COMPLICATIONS: ANESTHESIA: Medication used, monitored anesthesia care. ASSISTANTS: SPECIMENS: POSTOPERATIVE DIAGNOSES: Colorectal cancer screening, sigmoid diverticulosis, and internal hemorrhoids. DESCRIPTION OF PROCEDURE: The patient was placed in the left lateral decubitus position. The digital rectal exam revealed no abnormalities. The Olympus video pediatric colonoscope was entered into the rectum and advanced to the cecum with the assistance of abdominal wall pressure. Once in the cecum, I did identify normal-appearing cecal pouch with appendiceal orifice and a normal-appearing ileocecal valve. The terminal ileum was cannulated and appeared normal. The scope was withdrawn back in the colon. The entire cecum and ileocecal valve appeared normal. The scope was slowly withdrawn assessing all mucosal surfaces carefully. Preparation was excellent. I did not visualize any sign of polyps, colitis, nor angiodysplasia. There was a mild amount of sigmoid diverticulosis. In the rectum, scope was retroflexed visualizing some internal hemorrhoids, but no other pathology. The rectal mucosa appeared normal. The scope was straightened and withdrawn from the patient. He tolerated the procedure well and was returned to the recovery area in stable condition. IMPRESSION: 1. Diverticulosis. 2. Internal hemorrhoids. PLAN: Given the negative exam and no family history of known colon cancer, I would recommend a repeat colonoscopy in 10 years for further screening. He will otherwise see me on a p.r.n. basis. This has been discussed with his . Eliot Abreu MD RMReuben/MODL / [id number]
== END 2024-08-17 15:29 | disposition home or self-care (01) ==
PROVIDERS: PCP Internal Medicine; Visit Provider Internal Medicine
PROC: 0DJD8ZZ Inspection of Lower Intestinal Tract, Via Natural or Artificial Opening Endoscopic (ICD-10-PCS; CPT 45378; principal; 2024-08-17 13:30)
DX: Z12.11 Encounter for screening for malignant neoplasm of colon (principal); K57.30 Diverticulosis of large intestine without perforation or abscess without bleeding; K64.8 Other hemorrhoids; I10 Essential (primary) hypertension; F41.9 Anxiety disorder, unspecified; Z79.1 Long term (current) use of non-steroidal anti-inflammatories (NSAID); Z79.899 Other long term (current) drug therapy; Z88.1 Allergy status to other antibiotic agents; Z98.890 Other specified postprocedural states
CPT/HCPCS: 45378; J2003; J2704

== ENCOUNTER 2024-11-24 15:04 | Outpatient (AMB) | payer OTHER, SELFPAY ==
--- NOTE | 2024-11-24 15:09 | A.OFFPC_ITS ---
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 Accompanied by: Self / Same As Patient Allergies Amoxicillin Allergy (Unknown, Uncoded 11/24/24 15:38) rash Medication List - Last Reconciled 11/24/24 by Sharon Crandall PA-C ergocalciferol (vitamin D2) 1,250 mcg PO 2XW escitalopram oxalate 10 mg PO DAILY lisinopril 10 mg PO DAILY chpvjszxqwpc-dsdwtfso-ewepal 1 tab PO DAILY naproxen sodium (Aleve) 220 mg PO BID PRN Tobacco use date assessed: 11/24/24 Dental Screening Dental Screen Date: 11/24/24 Did you have a dental visit in the last 12 months?: No Did you have a dental problem in the last 6 months where you did not have access to dental care?: No Was dental information given to patient?: Patient has dentist HPI Establish care HPI Details The patient is a 64-year-old male presenting for a new patient appointment and annual physical examination. He has a history of diverticulosis and internal hemorrhoids, which were identified during a colonoscopy performed in August 2024. The patient was informed about the potential complications of diverticulosis, including inflammation and pain, and was advised to seek medical attention if symptoms such as left lower quadrant pain or bloody stools occur. The patient has been identified as prediabetic with a fasting glucose level of 105 mg/dL and an A1c level of 5.8%. He was advised to monitor his sugar intake and reduce consumption of carbohydrates such as pasta and bread. The patient has a history of vitamin D deficiency and is currently taking vitamin D supplements. He is also on escitalopram for anxiety and depression, which he reports as being effective. The patient has a history of hypertension, with a recent blood pressure reading of 132/70 mmHg, down from an initial reading of 144 mmHg. He is currently taking lisinopril 10 mg for blood pressure management. Patient is requesting a Podiatry referral due to he used to received cortisone shots to his feet due to pain. Will send referral. Social History - Exercise: No specific exercise routine discussed - Nutritional intake: High intake of car bohydrates such as pasta and bread [facility] Medical History (Updated 11/24/24 @ 17:08 by Sharon Crandall PA-C) Class 1 obesity with body mass index (BMI) of 31.0 to 31.9 in adult Foot pain Anxiety and depression Vitamin D deficiency Pre-diabetes Diverticulosis Annual physical exam Establishing care with new doctor, encounter for Anxiety HTN (hypertension) History of right inguinal hernia Surgical History Hx of inguinal hernia repair H/O colonoscopy History of excision of epidermal inclusion cyst (07/20/21) Family History Other Adopted person Social History Housing: House Alcohol intake: current Alcohol intake frequency: does not drink Patient Tobacco Use Status: Former Tobacco user service: No Current occupational status: employed Cognitive needs: No Hearing needs: No Vision needs: Yes (rx glasses ) Questionnaire PHQ-9 Over the last 2 weeks, how often have you been bothered by any of the following problems? 1. Little interest or pleasure in doing things: not at all 2. Feeling down, depressed, or hopeless: not at all 3. Trouble falling or staying asleep, or sleeping too much: not at all 4. Feeling tired or having little energy: not at all 5. Poor appetite or overeating: not at all 6. Feeling bad about yourself - or that you are a failure or have let yourself or your family down: not at all 7. Trouble concentrating on things, such as reading the newspaper or watching television: not at all 8. Moving or speaking so slowly that other people could have noticed. Or the opposite - being so fidgety or restless that you have been moving around a lot more than usual: not at all 9. Thoughts that you would be better off or of hurting yourself in some way: not at all Total score: 0 Depression Screening Interpretation: Negative Depression Screening Done: Yes 58676 - PHQ-9 Billing: Yes Source: Developed by Drs. Eliot Conley, Xuan Ruiz, Jay Patino and colleagues, with an educational pietro from [employer]. Thrive Questionnaire Date Thrive assessed: 11/24/24 I am a: Patient What is your living situation today?: I have a steady place to live Within the past 12 months, did the food you bought not last and you didn't have the money to get more?: Never true Within the past 12 months, did you worry whether your food would run out before you got money to buy more?: Never true Do you have trouble paying for medicines?: No Do you have trouble getting transportation to medical appointments?: No Do you have trouble paying your heating and electricity bill?: No Do you have trouble taking care of your child, family member or friend?: No Do you have trouble with day-to-day activities such as bathing, preparing meals, shopping, managing finances, etc.?: No Are you currently unemployed and looking for a job?: No Are you interested in more education?: No Please select the resources that you would like help with: None THRIVE Score: 0 AUDIT C Alcohol Use Questionnaire (AUDIT-C) 1. How often do you have a drink containing alcohol?: Never 3. How often do you have six or more drinks on one occasion?: Never Total Score: 0 Score Reviewed/Action Taken: No MARIELA-7 AMB Questionnaire MARIELA-7 Date MARIELA - 7 assessed: 11/24/24 Feeling nervous, anxious, or on edge: 0 = Not at all Not being able to stop or control worryin = Not at all Worrying too much about different things: 0 = Not at all Trouble relaxin = Not at all Being so restless that it is hard to sit still: 0 = Not at all Becoming easily annoyed or irritable: 0 = Not at all Feeling afraid as if something awful might happen: 0 = Not at all Total MARIELA-7 score (0-4 normal; 5-9 mild; 10-14 moderate; 15-21 severe): 0 Source: Developed by Drs. Eliot Conley, Xuan Ruiz, Jay Patino and colleagues, with an educational pietro from [employer]. MARIELA-7 Assessment Billing MARIELA-7 Assessment Tool: MARIELA-7 Assessment 58672 Review of Systems Const Details: - Cardiovascular: Denies chest pain, orthopnea, or syncope - Gastrointestinal: Denies abdominal pain, nausea, vomiting, diarrhea, or constipation - Respiratory: Denies dyspnea, cough, or wheezing All systems reviewed & are unremarkable except as noted in HPI and below Physical exam (Primary Care) Vital Signs: Last Vital Signs Temp 98.6 F 11/24/24 15:11 Pulse 66 11/24/24 15:11 Resp 14 11/24/24 15:11 BP 146/73 H 11/24/24 15:11 Pulse Ox 97 11/24/24 15:11 Oxygen Delivery Method Room Air 11/24/24 15:11 Care Plan Goal for BP management: <140/90 at Goal BMI result Body Mass Index 31.9 BMI Assessment/Plan discussion: High BMI High, discussed plan: lifestyle, weight reduction, dietary, physical activity and alcohol moderation Tobacco/Smoking Status: Tobacco use Status Tobacco use date assessed 11/24/24 11/24/24 15:10 Patient Tobacco Use Status Former Tobacco user 11/24/24 15:17 PHQ-9: PHQ-9 Score PHQ-9: Total score 0 11/24/24 15:39 Depression Screening Interpretation: Negative Thrive Assessment: Date of Thrive Assessment Date Thrive assessed 11/24/24 11/24/24 15:10 Const Other: Appearance: Alert. Oriented X3. No acute distress. Head: Normal external exam. Normocephalic. Atraumatic. Eyes: Pupils are equal, round, and reactive to light. Extraocular movements intact. Conjunctiva and sclera normal. Eyelids normal. Ears: External auditory canal normal. Tympanic membranes normal. Throat: Pharynx normal. Uvula midline. Moist mucous membranes. Neck: Normal inspection. Neck supple. Full range of motion. No adenopathy. Thyroid Normal. No meningeal signs. No neck mass noted. Cardiovascular: Normal heart rate and rhythm. Heart sound normal. No murmurs noted. Pulses normal throughout. Blood pressure is 132/70. Respiratory: No respiratory distress. Painless inspiration. Breath sounds normal. No wheezes/rales/rhonchi noted. Chest nontender. No accessory muscle usage noted or decreased air movement noted. Abdomen: Soft and nontender. Bowel sounds normal in all 4 quadrants. No diste ntion noted. No organomegaly noted. No visible injury noted. Back: No costovertebral angle tenderness. Full range of motion noted. Skin: Skin warm and dry. Normal skin color. Normal skin turgor. No ra shes/lesions/lacerations noted. Extremities: No lower extremity edema. Extremities exhibit normal range of motion. Extremities nontender. No leg swelling or calf tenderness. Neuro: Oriented X 3. No motor deficit. No sensory deficit. Reflexes normal. Results AMB Hemoglobin A1c AMB Hemoglobin A1c 5.8 % Last Edit by JUSTIN Silverio on 11/24/24 16:03 Results Reviewed Results Reviewed: - Labs: CBC normal, fasting glucose 105 mg/dL, A1c 5.8%, LDL 118 mg/dL, HDL 38 mg/dL, triglycerides 122 mg/dL - Tests: Colonoscopy showed diverticulosis and internal hemorrhoids Coding Level of Care Code New Pt Level 5 (07330) Complex EM visit Add On G2211 Diagnoses Establishing care with new doctor, encounter for Z76. Annual physical exam Z00. Diverticulosis K57.90 Pre-diabetes R73.03 HTN (hypertension) I10 Vitamin D deficiency E55.9 Anxiety and depression F41.9; F32.A Foot pain M79.673 Class 1 obesity with body mass index (BMI) of 31.0 to 31.9 in adult E66.811; Z68.31 Additional Codes PHQ-9 - 70824 - PHQ-9 Billing: Yes ([id number]) MARIELA-7 Assessment Billing - MARIELA-7 Assessment Tool: MARIELA-7 Assessment 99001 ([id number]) Assessment & Plan Assessment & Plan (1) Establishing care with new doctor, encounter for: Code(s): Z76.89 - Persons encountering health services in other specified circumstances Category: Medical (2) Annual physical exam: Code(s): Z00.00 - Encounter for general adult medical examination without abnormal findings Category: Medical (3) Diverticulosis: Code(s): K57.90 - Diverticulosis of intestine, part unspecified, without perforation or abscess without bleeding Category: Medical Plan: The patient was advised on the potential complications of diverticulosis, including inflammation and pain, and was instructed to seek medical attention if symptoms such as left lower quadrant pain or bloody stools occur. A follow-up colonoscopy is recommended in 10 years unless symptoms develop earlier. Condition is chronic and stable continue to monitor. (4) Pre-diabetes: Code(s): R73.03 - Prediabetes Category: Medical Plan: The patient was counseled on dietary modifications to manage prediabetes, including reducing intake of carbohydrates such as pasta and bread. Regular monitoring of blood glucose levels was recommended, and lifestyle changes were emphasized to prevent progression to diabetes. Condition is chronic and stable continue to monitor. (5) HTN (hypertension): Code(s): I10 - Essential (primary) hypertension Category: Medical Plan: The patient's blood pressure was monitored during the visit, showing improvement from an initial reading of 144 mmHg to 132/70 mmHg. Continued use of lisinopril 10 mg was advised, and dietary modifications were recommended to maintain blood pressure control. Condition is chronic and stable continue to monitor. (6) Vitamin D deficiency: Code(s): E55.9 - Vitamin D deficiency, unspecified Category: Medical Plan: The patient is currently taking vitamin D supplements to address vitamin D deficiency. Condition is chronic and stable continue to monitor. (7) Anxiety and depression: Code(s): F41.9 - Anxiety disorder, unspecified; F32.A - Depression, unspecified Category: Medical Plan: The patient is on escitalopram for management of anxiety and depression, which he reports as effective. Condition is chronic and stable continue to monitor. (8) Foot pain: Code(s): M79.673 - Pain in unspecified foot Category: Medical Plan: Will refer to Podiatry. Condition is chronic and stable continue to monitor. (9) Class 1 obesity with body mass index (BMI) of 31.0 to 31.9 in adult: Code(s): E66.811 - Obesity, class 1; Z68.31 - Body mass index [BMI] 31.0-31.9, adult Category: Medical Plan: Patient to improve diet and exercise regimen. Condition is chronic and stable will continue to monitor. Plan Plan Patient was informed and verbally consented to the use of an ambient scribe for clinic note documentation during this visit. 1. Diverticulosis The patient was advised on the potential complications of diverticulosis, including inflammation and pain, and was instructed to seek medical attention if symptoms such as left lower quadrant pain or bloody stools occur. A follow-up colonoscopy is recommended in 10 years unless symptoms develop earlier. 2. Prediabetes The patient was counseled on dietary modifications to manage prediabetes, including reducing intake of carbohydrates such as pasta and bread. Regular monitoring of blood glucose levels was recommended, and lifestyle changes were emphasized to prevent progression to diabetes. 3. Hypertension The patient's blood pressure was monitored during the visit, showing improvement from an initial reading of 144 mmHg to 132/70 mmHg. Continued use of lisinopril 10 mg was advised, and dietary modifications were recommended to maintain blood pressure control. 4. Vitamin D Deficiency The patient is currently taking vitamin D supplements to address vitamin D deficiency. 5. Anxiety And Depression The patient is on escitalopram for management of anxiety and depression, which he reports as effective. During the visit, I discussed with the patient the importance of managing prediabetes through dietary changes, specifically reducing carbohydrate intake. We also reviewed the potential complications of diverticulosis and the need for a follow-up colonoscopy in 10 years. The patient was informed about the current status of his hypertension and the effectiveness of his current medication regimen. I emphasized the importance of regular monitoring and lifestyle modifications to maintain his health. We also discussed the patient's vitamin D deficiency and the continuation of supplementation. The patient was encouraged to continue his current treatment for anxiety and depression, which he finds effective. Orders: Orders Lipid Panel Today Z00.00 - Encounter for general adult medical examination without abnormal findings Liver Panel Today Z00.00 - Encounter for general adult medical examination without abnormal findings Magnesium Today Z00.00 - Encounter for general adult medical examination without abnormal findings Vitamin D 25-OH Total Today Z00.00 - Encounter for general adult medical examination without abnormal findings AMB Hemoglobin A1c Today Z13.9 - Encounter for screening, unspecified C Reactive Protein Today Z00.00 - Encounter for general adult medical examination without abnormal findings Complete Blood Count Auto Diff Today Z00.00 - Encounter for general adult medical examination without abnormal findings Comprehensive [place]. Panel Fast Today Z00.00 - Encounter for general adult medical examination without abnormal findings Lyme IgG/IgM w/reflex to WB Today Z00.00 - Encounter for general adult medical examination without abnormal findings PSA,Total (Free>4and<10) Today Z00.00 - Encounter for general adult medical examination without abnormal findings Vitamin B12 and Folate Today Z00.00 - Encounter for general adult medical examination without abnormal findings TSH reflex Free T4 Today Z00.00 - Encounter for general adult medical examination without abnormal findings Referrals Podiatry Referral M79.673 - Pain in unspecified foot Patient Instructions: - Monitor blood sugar levels regularly and reduce carbohydrate intake. - Continue taking vitamin D supplements as prescribed. - Maintain current medication regimen for hypertension and anxiety/depression. - Schedule a follow-up colonoscopy in 10 years or sooner if symptoms develop. - Seek medical attention if experiencing symptoms of diverticulosis such as abdominal pain or bloody stools.
[2024-11-24 15:11] VITALS: BP 146/73; PULSE 66; RESP 14; TEMP 37; O2SAT 97; BMI 31.9
[2024-11-24 17:01] VITALS: BP 132/70
== END 2024-11-24 16:01 | disposition home or self-care (01) ==
LOC: HO.HMCSH 15:04
PROVIDERS: PCP Internal Medicine; Visit Provider Physician Assistant Medical
DX: Z00.00 Encounter for general adult medical examination without abnormal findings (principal); K57.90 Diverticulosis of intestine, part unspecified, without perforation or abscess without bleeding; R73.03 Prediabetes; I10 Essential (primary) hypertension; E55.9 Vitamin D deficiency, unspecified; F41.9 Anxiety disorder, unspecified; Z76.89 Persons encountering health services in other specified circumstances; F32.A Depression, unspecified; M79.673 Pain in unspecified foot; E66.811 Obesity, class 1; Z68.31 Body mass index [BMI] 31.0-31.9, adult; Z13.9 Encounter for screening, unspecified

== ENCOUNTER → 2024-11-24 15:04 | Outpatient (BNVA) | payer OTHER, SELFPAY | PROVIDERS: PCP Internal Medicine; Visit Provider Physician Assistant Medical | DX: Z00.00 Encounter for general adult medical examination without abnormal findings (principal); K57.90 Diverticulosis of intestine, part unspecified, without perforation or abscess without bleeding; E55.9 Vitamin D deficiency, unspecified; F41.9 Anxiety disorder, unspecified; F32.A Depression, unspecified; R73.03 Prediabetes; I10 Essential (primary) hypertension; M79.673 Pain in unspecified foot; E66.811 Obesity, class 1; Z68.31 Body mass index [BMI] 31.0-31.9, adult; Z76.89 Persons encountering health services in other specified circumstances | CPT/HCPCS: 83036; 96127; 99202; 99386 ==